=== PATIENT | male | born 1950 | race Caucasian/White ===

== ENCOUNTER 2020-01-26 11:55 | Emergency (ER) | payer MEDICARE ==
[~2020-01-26] VITALS: Ht 180.3 cm; Wt 108.9 kg
[2020-01-26] MEDS ORDERED: HYDROCHLOROTHIA25 M2 PO (12:11)
[2020-01-26] MEDS ORDERED: OMEPRAZOLE40 MG PO (12:11)
[2020-01-26] MEDS ORDERED: ASA81BEC PO (12:11)
[2020-01-26] MEDS ORDERED: CARVEDILOL25 MG PO (12:11)
[2020-01-26] MEDS ORDERED: COZAAR 25 MG TA25 M1 PO (12:11)
[2020-01-26] MEDS ORDERED: NORVASC 2.5 MG2.5 M1 PO (12:11)
[2020-01-26] MEDS ORDERED: SIMVASTATIN80 MG PO (12:12)
[2020-01-26] MEDS ORDERED: NORCO 5-325 TA1 EAC2 PO (13:55)
[2020-01-26 14:18] VITALS: BP 147/74
== END 2020-01-26 14:30 | disposition home or self-care (01) ==
LOC: M.ERS 11:55
DX: S06.0X0A Concussion without loss of consciousness, initial encounter (principal); S30.0XXA Contusion of lower back and pelvis, initial encounter; I10 Essential (primary) hypertension; K21.9 Gastro-esophageal reflux disease without esophagitis; Z88.2 Allergy status to sulfonamides; Z88.0 Allergy status to penicillin; W11.XXXA Fall on and from ladder, initial encounter; Y93.89 Activity, other specified; Y92.89 Other specified places as the place of occurrence of the external cause; Y99.8 Other external cause status